=== PATIENT | male | born 1975 | race Two or more races ===

== ENCOUNTER 2016-11-26 21:45 | Emergency (ER) | payer OTHER ==
[~2016-11-26] VITALS: Ht 182.9 cm; Wt 99.8 kg
[~2016-11-26 21:45] MED LIST: metformin
[2016-11-26 21:50] VITALS: BP 133/70
[2016-11-26] MEDS ORDERED: ONDANSETRON ODT 4 MG TAB PO ONE ×2 (22:33→22:45)
[2016-11-26 22:42] LABS: Basophils # (auto) 0.1 uL; Eosinophils # (auto) 0.5 uL; Eosinophils % (auto) 4.5 % (0.0-7.0); Hematocrit 46.1 % (41.0-53.0); Hemoglobin 15.8 g/dL (13.5-17.5); Lymphocytes # (auto) 2.6 uL; Mean Corpuscular Hemoglobin 29.1 pg (28.0-32.0); Mean Corpuscular Hgb Conc. 34.2 g/dL (32.0-36.0); Mean Corpuscular Volume 84.9 fL (80.0-100.0); Mean Platelet Volume 10.1 fL (7.4-10.4); Monocytes # (auto) 0.7 uL; Monocytes % (auto) 7.3 % (0.0-12.0); Neutrophils # (auto) 6.2 uL; Neutrophils % (auto) 61.2 % (37.0-80.0); Platelet Count (auto) 221 10^3/uL (140-450); Red Cell Distribution Width 13.5 % (11.6-16.0); White Blood Cell 10.2 10^3/uL (4.4-10.8)
[2016-11-26 23:20] LABS: BUN/Creatinine Ratio 13.9; Calcium 8.2 mg/dL (8.5-10.1); Potassium 4.2 mmol/L (3.5-5.1)
[2016-11-26 23:23] LABS: Bilirubin, Total 0.8 mg/dL (0.2-1.0); Total Protein 7.5 g/dL (6.4-8.2)
[2016-11-27] MEDS ORDERED: SODIUM CHLORIDE 0.9% 1,000 ML IV ONE (00:15)
[2016-11-27 00:45] LABS: Urine RBC None Seen /hpf (0 - 3)
[2016-11-27 00:55] LABS: Urine Bilirubin Negative (Negative); Urine Blood Negative /uL (Negative); Urine Color Yellow (Yellow); Urine Nitrite Negative (Negative); Urine Urobilinogen Normal (Negative)
[2016-11-27 00:58] LABS: Urine Glucose 4+ mg/dL (Normal); Urine Ketone 1+ (Negative)
[2016-11-27] MEDS ORDERED: InsuLIN REG 1unit/0.01ml Soln (100units/ml) IV ONE (01:30)
== END 2016-11-27 01:34 | disposition home or self-care (01) ==
LOC: ER 21:45 → EDBD 21:45 → ER 11-27 01:34
DX: T75.4XXA Electrocution, initial encounter (principal); I10 Essential (primary) hypertension; E11.65 Type 2 diabetes mellitus with hyperglycemia; Z88.6 Allergy status to analgesic agent; R11.0 Nausea; R07.89 Other chest pain; R20.2 Paresthesia of skin; Y93.89 Activity, other specified; Y99.8 Other external cause status; Y92.89 Other specified places as the place of occurrence of the external cause
CPT/HCPCS: 36415; 80053; 81001; 82550; 82962; 85025; 93005; 96361; 96374; 99285; G0434; J1815; J7030; Q0162

== ENCOUNTER 2018-08-31 00:41 | Emergency (ER) | payer OTHER ==
[~2018-08-31] VITALS: Ht 190.5 cm; Wt 120.2 kg
[2018-08-31 01:17] VITALS: BP 135/67
== END 2018-08-31 02:49 | disposition home or self-care (01) ==
LOC: ER 00:51
DX: M25.562 Pain in left knee (principal); M25.561 Pain in right knee; E11.9 Type 2 diabetes mellitus without complications; I10 Essential (primary) hypertension; Z88.6 Allergy status to analgesic agent
CPT/HCPCS: 73562

== ENCOUNTER 2018-12-10 22:48 | Emergency (ER) | payer OTHER ==
[~2018-12-10] VITALS: Ht 190.5 cm; Wt 117.9 kg
[2018-12-10 23:44] VITALS: BP 131/82
== END 2018-12-11 02:48 | disposition home or self-care (01) ==
LOC: ER 22:53
DX: S83.92XA Sprain of unspecified site of left knee, initial encounter (principal); S83.91XA Sprain of unspecified site of right knee, initial encounter; E11.9 Type 2 diabetes mellitus without complications; I10 Essential (primary) hypertension; Z88.0 Allergy status to penicillin; Z88.6 Allergy status to analgesic agent; X50.1XXA Overexertion from prolonged static or awkward postures, initial encounter; Y93.89 Activity, other specified; Y92.69 Other specified industrial and construction area as the place of occurrence of the external cause; Y99.8 Other external cause status
CPT/HCPCS: 73562